=== PATIENT | female | born 1940 | race Caucasian/White ===

== ENCOUNTER 2017-02-25 17:52 | Emergency (ER) | payer MEDICARE, OTHER ==
[~2017-02-25] VITALS: Ht 160 cm; Wt 77.2 kg
[~2017-02-25 17:52] MED LIST: ARTHTAB4 PO; ASPI1TAB PO; ASPI325T PO; CRES10TA32 PO; CRES5TAB PO; CYMB1CAP4 PO; CYMB1CAP5 PO; DICL75TA PO; FISH1000 PO; FISH5CAP PO; LIDOCAINE 2% W/EPIN INJ 20ML **PRES FREE As Ordered ONE; MISO200T56 PO; MULT1TAB8 PO
[2017-02-25] MEDS ORDERED: CEPHALEXIN 500 MG CAP PO ONE (18:45)
[2017-02-25] MEDS ORDERED: ADACEL/BOOSTRIX VACCINE (DIPHTH/PERTUSS/ACELL/TETANUS)0.5ML SYR (90715) IM ONE (18:45)
[2017-02-25] MEDS ORDERED: KEFL500C17 PO (18:49)
[2017-02-25 19:06] VITALS: BP 141/89
== END 2017-02-25 19:07 | disposition home or self-care (01) ==
LOC: M ED 17:52
DX: S01.01XA Laceration without foreign body of scalp, initial encounter (principal); W22.8XXA Striking against or struck by other objects, initial encounter; Y92.018 Other place in single-family (private) house as the place of occurrence of the external cause; Z79.899 Other long term (current) drug therapy; Z23 Encounter for immunization